=== PATIENT | female | born 1990 ===

== ENCOUNTER 2022-05-13 05:40 | Day surgery (SDC) | payer OTHER ==
[~2022-05-13] VITALS: Ht 160 cm; Wt 64.4 kg
== END 2022-05-13 10:50 | disposition home or self-care (01) ==
LOC: CIR.AMB 05:40
PROVIDERS: ATTEND Surgery
DX: K36 Other appendicitis (principal); Z20.822 Contact with and (suspected) exposure to COVID-19; Z86.16 Personal history of COVID-19; F17.210 Nicotine dependence, cigarettes, uncomplicated